=== PATIENT | male | born 1940 | race Caucasian/White ===

== ENCOUNTER 2017-12-11 13:12 | Inpatient (IN) | payer OTHER, MEDICAID ==
[~2017-12-11] VITALS: Ht 165.1 cm; Wt 60.5 kg
[~2017-12-11 13:12] MED LIST: COL100 PO; DUONEB INH; DUR25P TOP; FER300 PO; FLO4 PO; HYD25 PO; LIO10 PO; MIRUD PO; MOM PO; MUCINEX PO; NEU300 PO; NEXIUM PO; NOR10T PO; NORCO PO; PATANOL IO; PRO40 PO; ULT50 PO; VITC PO; ZOF4 PO
[2017-12-11] MEDS ORDERED: ARTIFICIAL TEA1 EACH OP (14:20)
[2017-12-11] MEDS ORDERED: COMINH INH (14:21)
[2017-12-11] MEDS ORDERED: CLARITIN10 MG PO (14:21)
[2017-12-11] MEDS ORDERED: DUL10S RC (14:21)
[2017-12-11] MEDS ORDERED: ASPIR 8181 MG PO (14:21)
[2017-12-11] MEDS ORDERED: LACTULOSE10 GM/152 PO (14:22)
[2017-12-11] MEDS ORDERED: MORPHINE SULFAT15 MG PO (14:22)
[2017-12-11] MEDS ORDERED: ACIDOPHILUS1 EAC2 PO (14:22)
[2017-12-11] MEDS ORDERED: MP PO (14:23)
[2017-12-11] MEDS ORDERED: MULTI-VITAMINS1 TAB PO (14:23)
[2017-12-11] MEDS ORDERED: VOLOS OU (14:23)
[2017-12-11] MEDS ORDERED: NITROSTAT0.4 MG SL (14:23)
[2017-12-11 15:03] LABS: BASOPHIL % 0.2 % (0-2); PLATELET COUNT 158 x10^3mcL (130-400)
[2017-12-11 15:09] LABS: RED CELL DISTRIBUTION WIDTH 16.4 % (11.5-14.5)
[2017-12-11 15:22] LABS: CALCIUM 7.2 mg/dL (8.5-10.1); CARBON DIOXIDE 25.1 mmol/L (21-32); CHLORIDE SERUM 103 mmol/L (98-107); CREATININE SERUM 0.6 mg/dL (0.7-1.3); GLUCOSE SERUM 203 mg/dL (74-106); POTASSIUM SERUM 4.2 mmol/L (3.5-5.1); SODIUM SERUM 136 mmol/L (136-145)
[2017-12-11 15:27] LABS: ALBUMIN 2.3 g/dL (3.4-5.0); ALKALINE PHOSPHATASE 64 U/L (46-116); ALT/SGPT 13 U/L (16-63); AMYLASE 35 U/L (25-115); AST/SGOT 16 U/L (15-37); BILIRUBIN TOTAL 0.2 mg/dL (0.20-1.00); CHOLESTEROL 113 mg/dL (<200); HDL CHOLESTEROL 56 mg/dL (40-60); LIPASE 100 IU/L (73-393); MAGNESIUM 2.7 mg/dL (1.8-2.4); T4(THYROXINE) 6.8 ug/dL (4.7-13.3); TOTAL PROTEIN, SERUM 6.7 g/dL (6.4-8.2)
[2017-12-11 16:21] LABS: T3 TOTAL 0.84 ng/mL
[2017-12-11 16:25] LABS: FREE T4 1.32 ng/dL (0.76-1.46); FREE THYROXINE INDEX 2.7 ug/dL (1.4-4.5); T4(THYROXINE) 7.2 ug/dL (4.7-13.3)
[2017-12-11 16:37] VITALS: BP 109/60
[2017-12-11 16:41] VITALS: Ht 165.1 cm; Wt 60.5 kg
[2017-12-11 21:43] VITALS: BP 129/51
[2017-12-12 00:35] LABS: microscopic required? YES; urine erythrocyte TRACE (NEGATIVE)
[2017-12-12 01:02] LABS: AMPHETAMINE QUAL UR NONE DETECTED (NEG <=1000)
[2017-12-12 05:57] VITALS: BP 140/64
[2017-12-12 06:23] LABS: PLATELET COUNT 171 x10^3mcL (130-400)
[2017-12-12 06:47] LABS: CALCIUM 8.2 mg/dL (8.5-10.1); CARBON DIOXIDE 25.4 mmol/L (21-32); CHLORIDE SERUM 106 mmol/L (98-107); CREATININE SERUM 0.6 mg/dL (0.7-1.3); GLUCOSE SERUM 155 mg/dL (74-106); MAGNESIUM 2.7 mg/dL (1.8-2.4); PHOSPHOROUS 3.1 mg/dL (2.5-4.9); POTASSIUM SERUM 4.2 mmol/L (3.5-5.1); SODIUM SERUM 140 mmol/L (136-145)
[2017-12-12 07:18] LABS: RED CELL DISTRIBUTION WIDTH 16.1 % (11.5-14.5)
[2017-12-12 09:05] VITALS: BP 133/52
[2017-12-12 09:45] LABS: BAND NEUTROPHIL 4 % (0-10); BASOPHIL 0 % (0-2); MONOCYTE 2 % (0-7); SEGMENTED NEUTROPHILS 69 % (37-75)
[2017-12-12 09:47] LABS: PLATELET MORPHOLOGY PLATELETS NORMAL; rbc morphology (normal/abnorm) ABNORMAL (NORMAL)
[2017-12-12 11:42] VITALS: BP 134/63
[2017-12-12 15:43] VITALS: BP 144/56
[2017-12-12 20:41] VITALS: BP 139/50
[2017-12-13] VITALS (7 sets, daily range): BP systolic 100–144; BP diastolic 60–99
[2017-12-13 06:40] LABS: BASOPHIL % 0.2 % (0-2); PLATELET COUNT 189 x10^3mcL (130-400)
[2017-12-13 06:51] LABS: CALCIUM 8.8 mg/dL (8.5-10.1); CARBON DIOXIDE 23.7 mmol/L (21-32); CHLORIDE SERUM 105 mmol/L (98-107); CREATININE SERUM 0.7 mg/dL (0.7-1.3); GLUCOSE SERUM 129 mg/dL (74-106); POTASSIUM SERUM 4.3 mmol/L (3.5-5.1); SODIUM SERUM 140 mmol/L (136-145)
[2017-12-13 07:23] LABS: RED CELL DISTRIBUTION WIDTH 16.2 % (11.5-14.5)
[2017-12-14 05:59] VITALS: BP 127/68
[2017-12-14 09:12] VITALS: BP 122/60
[2017-12-14 14:00] VITALS: BP 115/60
[2017-12-14 17:33] VITALS: BP 97/55
[2017-12-14 21:38] VITALS: BP 104/74
[2017-12-15 05:15] VITALS: BP 121/66
[2017-12-15 07:15] LABS: BASOPHIL % 0.2 % (0-2); PLATELET COUNT 200 x10^3mcL (130-400)
[2017-12-15 07:26] LABS: CALCIUM 8.4 mg/dL (8.5-10.1); CARBON DIOXIDE 25.6 mmol/L (21-32); CHLORIDE SERUM 104 mmol/L (98-107); CREATININE SERUM 0.6 mg/dL (0.7-1.3); GLUCOSE SERUM 85 mg/dL (74-106); PHOSPHOROUS 3.8 mg/dL (2.5-4.9); POTASSIUM SERUM 3.9 mmol/L (3.5-5.1); SODIUM SERUM 139 mmol/L (136-145)
[2017-12-15 08:57] VITALS: BP 102/63
[2017-12-15 14:07] VITALS: BP 123/80
[2017-12-15 16:25] VITALS: BP 124/63
[2017-12-15 21:16] VITALS: BP 119/68
[2017-12-16 05:07] VITALS: BP 98/64
[2017-12-16 07:13] LABS: BASOPHIL % 0.3 % (0-2); PLATELET COUNT 202 x10^3mcL (130-400)
[2017-12-16 07:28] LABS: CALCIUM 8.3 mg/dL (8.5-10.1); CARBON DIOXIDE 24.7 mmol/L (21-32); CHLORIDE SERUM 99 mmol/L (98-107); CREATININE SERUM 0.7 mg/dL (0.7-1.3); GLUCOSE SERUM 88 mg/dL (74-106); PHOSPHOROUS 3.2 mg/dL (2.5-4.9); POTASSIUM SERUM 3.5 mmol/L (3.5-5.1); SODIUM SERUM 133 mmol/L (136-145)
[2017-12-16 09:00] VITALS: BP 115/71
[2017-12-16 13:01] VITALS: BP 109/71
[2017-12-16 13:33] VITALS: BP 109/71
[2017-12-16 21:35] VITALS: BP 101/54
[2017-12-17 05:20] VITALS: BP 118/71
[2017-12-17 06:48] LABS: BASOPHIL % 0.3 % (0-2); PLATELET COUNT 208 x10^3mcL (130-400)
[2017-12-17 06:57] LABS: CALCIUM 8.5 mg/dL (8.5-10.1); CARBON DIOXIDE 24.9 mmol/L (21-32); CHLORIDE SERUM 101 mmol/L (98-107); CREATININE SERUM 0.6 mg/dL (0.7-1.3); GLUCOSE SERUM 88 mg/dL (74-106); POTASSIUM SERUM 3.6 mmol/L (3.5-5.1); SODIUM SERUM 133 mmol/L (136-145)
[2017-12-17 07:03] LABS: RED CELL DISTRIBUTION WIDTH 15.9 % (11.5-14.5)
[2017-12-17 09:25] VITALS: BP 137/74
[2017-12-17 13:51] VITALS: BP 118/63
[2017-12-17 16:56] VITALS: BP 119/59
[2017-12-17 21:54] VITALS: BP 105/69
[2017-12-18 06:48] VITALS: BP 107/70
[2017-12-18 07:13] LABS: BASOPHIL % 0.4 % (0-2); PLATELET COUNT 218 x10^3mcL (130-400)
[2017-12-18 07:18] LABS: RED CELL DISTRIBUTION WIDTH 16.6 % (11.5-14.5)
[2017-12-18 07:30] LABS: CALCIUM 8.9 mg/dL (8.5-10.1); CARBON DIOXIDE 25.6 mmol/L (21-32); CHLORIDE SERUM 99 mmol/L (98-107); CREATININE SERUM 0.6 mg/dL (0.7-1.3); GLUCOSE SERUM 84 mg/dL (74-106); PHOSPHOROUS 2.7 mg/dL (2.5-4.9); POTASSIUM SERUM 3.8 mmol/L (3.5-5.1); SODIUM SERUM 135 mmol/L (136-145)
[2017-12-18 10:01] VITALS: BP 115/63
[2017-12-18 13:47] VITALS: BP 109/70
[2017-12-18 17:29] VITALS: BP 108/67
[2017-12-18 21:01] VITALS: BP 100/59
[2017-12-19 05:27] VITALS: BP 94/59
[2017-12-19 07:09] LABS: BASOPHIL % 0.6 % (0-2); PLATELET COUNT 212 x10^3mcL (130-400)
[2017-12-19 07:20] LABS: CALCIUM 8.5 mg/dL (8.5-10.1); CARBON DIOXIDE 25.2 mmol/L (21-32); CHLORIDE SERUM 97 mmol/L (98-107); CREATININE SERUM 0.8 mg/dL (0.7-1.3); GLUCOSE SERUM 143 mg/dL (74-106); POTASSIUM SERUM 3.3 mmol/L (3.5-5.1); SODIUM SERUM 132 mmol/L (136-145)
[2017-12-19 07:21] LABS: RED CELL DISTRIBUTION WIDTH 16.5 % (11.5-14.5)
[2017-12-19 09:37] VITALS: BP 101/59
[2017-12-19 14:18] VITALS: BP 119/81
[2017-12-19 18:27] VITALS: BP 96/54
[2017-12-19 21:28] VITALS: BP 113/34
[2017-12-20 06:26] VITALS: BP 92/58
[2017-12-20 07:03] LABS: BASOPHIL % 0.4 % (0-2); PLATELET COUNT 213 x10^3mcL (130-400)
[2017-12-20 07:05] LABS: CALCIUM 8.6 mg/dL (8.5-10.1); CARBON DIOXIDE 26.9 mmol/L (21-32); CHLORIDE SERUM 97 mmol/L (98-107); CREATININE SERUM 0.6 mg/dL (0.7-1.3); GLUCOSE SERUM 93 mg/dL (74-106); POTASSIUM SERUM 3.8 mmol/L (3.5-5.1); SODIUM SERUM 131 mmol/L (136-145)
[2017-12-20 07:10] LABS: RED CELL DISTRIBUTION WIDTH 16.7 % (11.5-14.5)
[2017-12-20 08:30] VITALS: BP 109/71
[2017-12-20 15:40] VITALS: BP 109/71
[2017-12-20 16:48] VITALS: BP 116/84
[2017-12-20 21:42] VITALS: BP 118/67
[2017-12-21 05:40] VITALS: BP 121/66
[2017-12-21 06:58] LABS: BASOPHIL % 0.3 % (0-2); PLATELET COUNT 200 x10^3mcL (130-400)
[2017-12-21 07:05] LABS: CALCIUM 8.2 mg/dL (8.5-10.1); CARBON DIOXIDE 25.3 mmol/L (21-32); CHLORIDE SERUM 94 mmol/L (98-107); CREATININE SERUM 0.4 mg/dL (0.7-1.3); GLUCOSE SERUM 93 mg/dL (74-106); POTASSIUM SERUM 3.7 mmol/L (3.5-5.1); SODIUM SERUM 128 mmol/L (136-145)
[2017-12-21 07:06] LABS: RED CELL DISTRIBUTION WIDTH 16.7 % (11.5-14.5)
[2017-12-21 09:25] VITALS: BP 90/58
[2017-12-21 18:11] VITALS: BP 119/60
[2017-12-21 21:45] VITALS: BP 118/73
[2017-12-22 05:49] VITALS: BP 111/56
[2017-12-22 07:09] LABS: BASOPHIL % 0.6 % (0-2); PLATELET COUNT 199 x10^3mcL (130-400)
[2017-12-22 07:11] LABS: RED CELL DISTRIBUTION WIDTH 16.6 % (11.5-14.5)
[2017-12-22 08:09] LABS: CALCIUM 8.9 mg/dL (8.5-10.1); CARBON DIOXIDE 26.3 mmol/L (21-32); CHLORIDE SERUM 100 mmol/L (98-107); CREATININE SERUM 0.4 mg/dL (0.7-1.3); GLUCOSE SERUM 87 mg/dL (74-106); SODIUM SERUM 133 mmol/L (136-145)
[2017-12-22 09:56] VITALS: BP 110/59
[2017-12-22 11:29] VITALS: BP 110/59
== END 2017-12-22 14:10 | DRG 177 ==
LOC: ED 13:12 → DU 15:16 → MU 12-20 11:02
PROVIDERS: Emergency Medicine; Family Medicine; Family Medicine Sports Medicine
DX: J69.0 Pneumonitis due to inhalation of food and vomit (principal); E43 Unspecified severe protein-calorie malnutrition; J90 Pleural effusion, not elsewhere classified; I42.2 Other hypertrophic cardiomyopathy; B96.20 Unspecified Escherichia coli [E. coli] as the cause of diseases classified elsewhere; B96.89 Other specified bacterial agents as the cause of diseases classified elsewhere; I11.0 Hypertensive heart disease with heart failure; J47.9 Bronchiectasis, uncomplicated; M10.9 Gout, unspecified; E83.39 Other disorders of phosphorus metabolism; E83.41 Hypermagnesemia; E83.51 Hypocalcemia; D64.9 Anemia, unspecified; Z66 Do not resuscitate; Z87.891 Personal history of nicotine dependence; Z86.73 Personal history of transient ischemic attack (TIA), and cerebral infarction without residual deficits; Z79.891 Long term (current) use of opiate analgesic; Z79.82 Long term (current) use of aspirin; Z91.013 Allergy to seafood; Z68.23 Body mass index [BMI] 23.0-23.9, adult; Z16.12 Extended spectrum beta lactamase (ESBL) resistance
CPT/HCPCS: 36600; 82962; 83880; 84439; 87804; 92610-GN; G0480; J2543; J2920; J2930; J7030; J7040; J7613; J7620; J7644; Q0092; Q9967